=== PATIENT | male | born 1985 | race Caucasian/White ===

== ENCOUNTER → 2024-09-08 16:55 | Outpatient (REF) | payer OTHER, SELFPAY | LOC: RAD 16:55 | PROVIDERS: ATTENDING PHYSICIAN Registered Nurse | DX: M25.561 Pain in right knee (principal) | CPT/HCPCS: 73564 ==

== ENCOUNTER → 2024-11-04 12:47 | Outpatient (REF) | payer OTHER, SELFPAY | LOC: RCS 12:47 | PROVIDERS: ATTENDING PHYSICIAN Student in an Organized Health Care Education/Training Program; FAMILY PHYSICIAN Family Medicine | DX: I35.1 Nonrheumatic aortic (valve) insufficiency (principal); E78.5 Hyperlipidemia, unspecified; Z82.49 Family history of ischemic heart disease and other diseases of the circulatory system | CPT/HCPCS: 93306 ==